=== PATIENT | male | born 2000 | race Caucasian/White ===

== ENCOUNTER 2020-05-06 16:28 | Emergency (ER) | payer SELFPAY ==
[~2020-05-06] VITALS: Ht 177.8 cm; Wt 79.3 kg
[~2020-05-06 16:28] MED LIST: AMOX-355 PO; AMOX250S5 PO; ASCO500T71 PO; CALC-250 PO; CEFTIN; DEXAMETHASONE PO; DICY10CA59 PO; FAMO-119 PO; FAMO20TA5 PO; HYDR15SO8 PO; HYOS0.1283 SL; METR500T PO; NF-ESOM40C PO; ONDA4TAB8 PO; PRD20T PO; TETRACAINESUCKERS MT; TRM50T PO
[2020-05-06 16:29] VITALS: BP 129/89
--- NOTE | 2020-05-06 16:44 | ED EENT ---
History of Present Illness General Chief Complaint: Nasal Problems Stated Complaint: NOSE PAIN;MOUTH PAIN;LIP SWELLING Source: patient Exam Limitations: no limitations History of Present Illness Date Seen by Provider: May 06, 2020 Time Seen by Provider: 16:25 Initial Comments Patient presents ER by private conveyance from home with chief complaint for the past couple days she's had swelling redness and pain with sometimes bloody, mild discharge from his right nostril. He's been using Tylenol, ibuprofen and warm water. He does not follow with a doctor for any reason. She does not take any medications or have any significant medical history. He does smoke and drink regularly. Allergies and Home Medications Allergies Uncoded Allergies: RAW EGGS (Allergy, Severe, HIVES, 10/05/15) Home Medications Amoxicillin 250 Mg/5 Ml Susp, 2 TSP PO BID Prescribed by: REGAN ADHIKARI on 03/10/16935 Ascorbic Acid 500 Mg Tab.chew, 500 MG PO DAILY, (Reported) Cholecalciferol 5,000 Unit Capsule, 5,000 UNIT PO DAILY, (Reported) Esomeprazole Magnesium 40 Mg Cap, 40 MG PO DAILY, (Reported) Famotidine 20 Mg Tablet, 20 MG PO BID Prescribed by: FABY WILLIAM on 10/05/15 1154 Hydrocodone/Acetaminophen 15 Ml Solution, 2-3 TSP PO Q4H PRN for PAIN Prescribed by: REGAN ADHIKARI on 03/10/16935 Tetracaine Sucker Ea, 1 EA MT UD PRN for PAIN Tetracain Suckers These suckers are custom made and require a prescription. Moisten the sucker first and then suck on it gently as far back in the mouth as possible for 2-3 days. You can repeadt it in about an hour. This will take the edge off but not completely numb the throat. Prescribed by: REGAN ADHIKARI on 03/10/16935 [Dexamethasone] , 2 TSP PO DAILY Prescribed by: REGAN ADHIKARI on 03/10/16935 Patient Home Medication List Home Medication List Reviewed: Yes Review of Systems Review of Systems Constitutional: No chills, No fever Eyes: Denies Blindness, Denies Blurred Vision Ears: Denies Dizziness, Denies Pain Nose: see HPI; denies epistaxis; pain, bloody discharge; denies clear discharge, denies purulent discharge Mouth: denies clots, denies loose teeth Past Fkkpeeo-Oprgbh-Giwhgt Hx Patient Social History Alcohol Use: Regular Use Recreational Drug Use: No Smoking Status: Current Everyday Smoker Type Used: Cigarettes Recent Foreign Travel: No Contact w/Someone Who Travel: No Immunizations Up To Date Tetanus Booster (TDap): Less than 5yrs PED Vaccines UTD: Yes Past Medical History Heart Murmur Reproductive Disorders: No Sexually Transmitted Disease: No HIV/AIDS: No Gastroesophageal Reflux, Chronic Constipation, Chronic Diarrhea Loss of Vision: Denies Hearing Impairment: Denies Depression Adverse Reaction/Blood Tranf: No Family Medical History No Pertinent Family Hx Physical Exam Height, Weight, BMI Height: 5'9.50" Weight: 160lbs. 4.0oz. 72.561500ip; 26.62 BMI Method:Stated General Appearance: WD/WN, no apparent distress Eyes: bilateral eye normal inspection, bilateral eye PERRL, bilateral eye EOMI Nose: other (erythema to the nasal mucosa bilaterally with tenderness and swelling of the anterior portion of the nasal cavity and right half of the upper lip without fluctuance or pointing. No discharge noted.) Mouth/Throat: normal mouth inspection, pharynx normal; No dental tenderness Progress/Results/Core Measures Progress Progress Note : Time: 16:40 Progress Note Suspect a folliculitis. Return up with him on mupirocin and Bactrim. Encourage follow-up if not seeing improvement. Departure Impression Primary Impression: Folliculitis nares perforans Disposition: 01 HOME, SELF-CARE Condition: Stable Departure-Patient Inst. Decision time for Depature: 16:40 Referrals: HENRI GALVEZ MD (PCP/Family) Primary Care Physician Patient Instructions: Bacterial Folliculitis (DC) Add. Discharge Instructions: Keep the skin and your hands clean with regular soap and water. Use warm moist compresses frequently for pain. Tylenol 1000 mg every 8 hours as necessary for pain. Ibuprofen 800 mg every 8 hours as necessary for pain. Twice a day apply a thin layer of mupirocin for the next week. Bactrim one tablet twice daily for the next week. Take with food. Expect to see some improvement by day 3 or 4. If not follow up at urgent care or return to the ER. All discharge instructions reviewed with patient and/or family. Voiced understanding. Scripts Sulfamethoxazole/Trimethoprim (Bactrim Ds Tablet) 1 Each Tablet 1 EACH PO BID for 7 Days, #14 TAB 0 Refills Prov: TRINIDAD ROD 05/06/20 Mupirocin Calcium (Mupirocin) 15 Gm Cream..g. 1 GM TP BID for 7 Days, #1 TUBE 0 Refills Prov: TRINIDAD ROD 05/06/20 TRINIDAD ROD May 06, 2020 16:44
[2020-05-06] MEDS ORDERED: SULF1TAB35 PO (16:45)
[2020-05-06] MEDS ORDERED: MUPI15CR11 TP (16:45)
== END 2020-05-06 16:51 | disposition home or self-care (01) ==
LOC: EDUNIT# 16:28 → ER 16:29
DX: L73.9 Follicular disorder, unspecified (principal); K21.9 Gastro-esophageal reflux disease without esophagitis; F17.210 Nicotine dependence, cigarettes, uncomplicated
CPT/HCPCS: 99282